=== PATIENT | male | born 1960 | race Caucasian/White ===

== ENCOUNTER → 2018-12-13 13:56 | Outpatient (CLI) | payer MEDICARE, SELFPAY ==
[2018-12-04 10:29] VITALS: BMI 28.2
--- NOTE | 2018-12-13 14:01 | EKG12_ITS ---
Test Reason : MED USE Blood Pressure : / mmHG Vent. Rate : 091 BPM Atrial Rate : 091 BPM P-R Int : 130 ms QRS Dur : 086 ms QT Int : 344 ms P-R-T Axes : 044 041 037 degrees QTc Int : 423 ms Sinus rhythm with frequent Premature ventricular complexes Possible Left atrial enlargement Borderline ECG Confirmed by JANAY KIMBROUGH, ARLYN ([id number]), book editor EHSAN BRAVO ([id number]) on 12/14/2018 8:13:42 AM Referred By: Antonio Michelle Confirmed By:ARLYN GUSTAFSON MD
== END ==
LOC: CVS 14:00
PROVIDERS: Family Provider Internal Medicine; PCP Internal Medicine; Referring Provider Internal Medicine; Visit Provider Internal Medicine
DX: I10 Essential (primary) hypertension (principal)
CPT/HCPCS: 93005

== ENCOUNTER → 2019-03-07 08:10 | Outpatient (CLI) | payer MEDICARE, SELFPAY ==
[2019-03-05 16:53] VITALS: BMI 28.2
[2019-03-07 12:21] LABS: Hematocrit 38.6 % (40-54); Hemoglobin 12.9 g/dl (13.0-16.5); Mean Corp Hgb Conc 33.4 g/gl (32-36); Mean Corpuscular Hgb 33.4 pg (27.0-32.0); Mean Platelet Vol. 12.4 fl (6.2-12.0); Platelet Count 141 K/mm3 (150-450); RBC Distribution Width CV 13.4 % (11.6-14.6); Red Blood Count 3.86 M/mm3 (4.6-6.2); White Blood Count 5.9 K/mm3 (4.4-11.0)
[2019-03-07 12:25] LABS: Scan Indicated on CBC? Y/N NO
[2019-03-07 12:35] LABS: Vitamin B12 503 pg/mL (211-911)
[2019-03-07 12:43] LABS: ALB/GLOB Ratio 1.1 RATIO (0.9-2.4); AST(SGOT) 19 U/L (15-37); Alanine Aminotransfer ALT/SGPT 23 U/L (16-61); Albumin, Serum 3.7 g/dL (3.2-5.0); Alkaline Phosphatase 68 U/L (45-117); Anion Gap 7 (5-15); BUN 8 mg/dL (7-18); BUN/Creat Ratio 8.1 RATIO (10-20); Calcium,Total 8.5 mg/dL (8.5-10.1); Chloride 109 mmol/L (98-107); Creatinine, Serum 0.98 mg/dL (0.70-1.30); EST Glomerular Filtration Rate 83 mL/min (>60); Est Glom Filt Rate - Afr Amer 100 mL/min (>60); Globulin 3.5 g/dL (2.2-4.2); Glucose 90 mg/dL (74-106); Potassium 3.9 mmol/L (3.5-5.1); Protein, Total 7.2 g/dL (6.4-8.2); Sodium Level 141 mmol/L (136-145); Thyroid Stim Hormone (TSH) 2.89 uIU/mL (0.358-3.74)
== END ==
PROVIDERS: Family Provider Internal Medicine; PCP Internal Medicine; Visit Provider Nurse Practitioner Family
DX: I10 Essential (primary) hypertension (principal); R53.83 Other fatigue; R43.2 Parageusia
CPT/HCPCS: 36415; 80053; 82607; 84443; 85027

== ENCOUNTER → 2019-03-27 10:04 | Outpatient (CLI) | payer MEDICARE, SELFPAY ==
[2019-03-20 13:34] VITALS: BMI 26.6
[2019-03-27 12:58] LABS: Erythrocyte Sedimentation Rate 16 mm/hr (0-20)
[2019-03-27 13:21] LABS: Amylase 141 U/L (25-115); Cholesterol 158 mg/dL (200); High Density Lipoprotein 49 mg/dL; Lipase 601 U/L (73-393); Triglycerides 117 mg/dL; Very Low Density Lipoprotein 23 mg/dL (5-40)
[2019-03-28 15:55] LABS: Folate, Hemolysate Test 341.9 ng/mL (Not Estab.); Folate, RBC (Hct) Test 40.9 % (37.5-51.0)
[2019-03-29 12:32] LABS: Folates, RBC Test 836 ng/mL (>498)
== END ==
PROVIDERS: Family Provider Internal Medicine; PCP Internal Medicine; Visit Provider Nurse Practitioner Family
DX: D53.9 Nutritional anemia, unspecified (principal); E78.5 Hyperlipidemia, unspecified; R11.2 Nausea with vomiting, unspecified; R63.4 Abnormal weight loss
CPT/HCPCS: 36415; 80061; 82150; 82747; 83690; 83921; 85014; 85652

== ENCOUNTER → 2019-04-03 09:53 | Outpatient (CLI) | payer MEDICARE, SELFPAY ==
[2019-03-05 16:53] VITALS: BMI 28.2
[2019-03-29 14:47] VITALS: BMI 26.6
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
== END ==
LOC: MRI 09:53
PROVIDERS: Family Provider Internal Medicine; PCP Internal Medicine; Referring Provider Nurse Practitioner Family; Visit Provider Nurse Practitioner Family
DX: M48.02 Spinal stenosis, cervical region (principal); M54.9 Dorsalgia, unspecified; G89.29 Other chronic pain
CPT/HCPCS: 72141

== ENCOUNTER 2019-04-09 08:32 | Day surgery (SDC) | payer MEDICARE, SELFPAY ==
--- NOTE | 2019-03-29 03:54 | HP_ITS ---
Intake Vital Signs 03/29/19 Height 5 ft 6 in 03/29/19 Weight: 165 lb 03/29/19 Body Mass Index (BMI) 26.6 03/29/19 Blood Pressure 158/92 H 03/29/19 Blood Pressure Location Rt brachial 03/29/19 Blood Pressure Position Sitting 03/29/19 Respiratory Rate 14 03/29/19 Pulse Rate 92 03/29/19 Pulse Source Monitor 03/29/19 Temperature 98.2 F 03/29/19 Temperature Source Oral 03/29/19 Pulse Ox 96 03/29/19 Oxygen Delivery Method room air 03/29/19 Body Mass Index (BMI) 26.6 Intake Visit Reasons: Nausea/Vomitting Abnormal Weight Loss Chief Complaint: 2 Week FU, [facility] reports [employer] Required: No Is patient in pain?: No Allergies tramadol Allergy (Severe, Verified 03/29/19 14:48) Itching Medications amlodipine 5 mg tablet 5 mg PO DAILY #90 tab 01/01/19 [Rx Confirmed 03/29/19] cyclobenzaprine 10 mg tablet 5 - 10 mg PO TID PRN #30 tab 03/05/19 [Rx Confirmed 03/29/19] meloxicam 7.5 mg tablet 7.5 mg PO DAILY #90 tab 03/05/19 [Rx Confirmed 03/29/19] omeprazole 20 mg capsule,delayed release 20 mg PO DAILY #90 cap 03/05/19 [Rx Confirmed 03/29/19] PFS Medical History Hypertension (Chronic) Arthritis (Acute) Hyperlipemia (Chronic) Chronic headaches (Chronic) Chronic back pain (Chronic) Cervical stenosis of spine (Acute) Surgical History History of appendectomy (Acute) History of carpal tunnel release of both wrists (Acute) History of cervical spinal surgery (Acute) History of lumbar surgery (Acute) History of vasectomy (Acute) Family History Mother Diabetes Arthritis Social History Smoking Status: Current every day smoker alcohol intake: current alcohol intake frequency: holidays/special occasions only substance use type: marijuana what type of physical activity do you participate in: walking frequency: daily HPI HPI HPI: SANTINO NICHOLAS, is a 59 M who presents to the office today for HPI HPI Surgical H&P: Yes HPI: SANTINO NICHOLAS, is a 59 M who presents to the office today for weight loss, GERD, nausea and vomiting. Patient reports that he has been having metallic taste in his mouth as well as nausea and vomiting. He is also saying that he has been on omeprazole. He has a history of surgery for cervical spine and the plate that is in his C-spine has broken. He reports a metallic taste in his throat. He also complains of swelling of his lymph nodes on the left side of his neck. He is also experienced a lot of unintentional weight loss lately. ROS General General: Yes weight change (loss, unintentional) and fatigue HEENT HEENT: Yes difficulty swallowing and swollen glands Musc Musculoskeletal: Yes back problems, arthritis, rheumatoid arthritis and gout Cardio Cardiovascular: Yes high blood pressure; no murmur, pacemaker, heart disease, atrial fibrillation, heart attack, heart stent, palpitations, shortness of breat with exertion or chest pain Psych Psychiatric: Yes depression; no anxiety Resp Respiratory: No shortness of breath, Yes sleep apnea, No cough, No COPD, No asthma, No emphysema, No wheezing Gastro Gastrointestinal: Yes abdominal pain, Yes nausea or vomiting, Yes diarrhea, No constipation, No blood in stool, No acid reflux, No hemorrhoids, No ulcers, No gallbladder problem, No black,tarry stools Jeb Hematologic: No blood thinners Exam Const General: cooperative Orientation: alert, oriented x3 Resp Effort & Inspection: normal respiratory effort Auscultation: clear to auscultation bilaterally Cardio Rate: regular rate Rhythm: regular rhythm Heart Sounds: no murmurs GI Inspection: non-distended Palpation: soft, nontender Assessment & Plan Problems 1. Abdominal pain with vomiting R10.9; R11.10 2. Weight loss, unintentional R63.4 Plan The patient has unintentional weight loss as well as vomiting and a metallic taste in his mouth. He also has swelling of his neck glands. I advised the patient a CT of his chest abdomen and pelvis to rule out malignancy due to weight loss and history of smoking. I will perform an EGD to check for malignancy as well. I will refer the patient to ENT for his swollen neck glands. Osvaldo Rodriguez MD Pager: [facility] [address] [place] [address], [address] [place] [address] Office: Orders Orders: EGD Today K21.9, R10.9, R11.10 Abdomen/Pelvis WITH Contrast Today R11.0, R63.4 Chest without Contrast Today R11.0, R63.4, Z72.0 Referrals: Ears, Nose and Throat M48.02, R59.0, R63.4 Coding Level of Care Code Off vis,new,level 3 Diagnoses Abdominal pain with vomiting R10.9; R11.10 Weight loss, unintentional R63.4 03/29/19 [id number] <Electronically signed by Osvaldo Rodriguez MD> Date Osvaldo Rodriguez MD I have re-examined the patient. There are no clinical changes since date of exam.
[2019-03-29 14:47] VITALS: BMI 26.6
[2019-04-09 09:02] VITALS: BP 147/81; PULSE 70; RESP 16; TEMP 36.6; O2SAT 98; BMI 26.9
[2019-04-09 11:58] VITALS: BP 114/70; BP 147/81; PULSE 67; RESP 18; TEMP 36.1; O2SAT 93
--- NOTE | 2019-04-09 11:58 | OP.ENDO_ITS ---
04/09/2019 Antonio Michelle MD [address] [place] [address] Re : Upper GI endoscopy procedure for Eliezer Rubio Dear Dr. Michelle This procedure was performed on Tuesday, April 09, 2019. My impressions and recommendations are as follows: Impressions : - Normal nasopharynx and oropharynx. - Normal esophagus. - Normal stomach. - Normal examined duodenum. - No specimens collected. Recommendations : - Discharge patient to home. - Resume previous diet. - Continue present medications. My findings are described in the full procedure note, which is enclosed. If I can be of further assistance, please feel free to contact me at Doctor phone number(s): , Work: . Sincerely, Osvaldo Rodriguez MD 04/09/2019 11:57:41 AM This report has been signed electronically.
[2019-04-09 12:03] VITALS: BP 116/74; BP 147/81; PULSE 68; RESP 16; O2SAT 96
[2019-04-09 12:08] VITALS: BP 114/82; BP 147/81; PULSE 68; RESP 16; O2SAT 96
[2019-04-09 12:13] VITALS: BP 112/75; BP 147/81; PULSE 61; RESP 16; TEMP 36.2; O2SAT 96
[2019-04-09 12:29] VITALS: BP 147/81
== END 2019-04-09 12:57 | disposition home or self-care (01) ==
LOC: EN 08:33 → AC 08:34
PROVIDERS: Family Provider Internal Medicine; PCP Internal Medicine; Referring Provider Internal Medicine; Visit Provider Surgery
PROC: 0DJ08ZZ Inspection of Upper Intestinal Tract, Via Natural or Artificial Opening Endoscopic (ICD-10-PCS; CPT 43235; principal; 2019-04-09 10:25)
DX: R10.13 Epigastric pain (principal); I10 Essential (primary) hypertension; E78.5 Hyperlipidemia, unspecified; K21.9 Gastro-esophageal reflux disease without esophagitis; F17.200 Nicotine dependence, unspecified, uncomplicated; F12.90 Cannabis use, unspecified, uncomplicated; R11.2 Nausea with vomiting, unspecified; R63.4 Abnormal weight loss; Z68.26 Body mass index [BMI] 26.0-26.9, adult; Z79.82 Long term (current) use of aspirin; Z79.899 Other long term (current) drug therapy
CPT/HCPCS: 43235; J7120; J2405

== ENCOUNTER → 2019-04-18 | Outpatient (CLI) | payer MEDICARE, SELFPAY ==
[2019-03-29 14:47] VITALS: BMI 26.6
[2019-04-10 14:18] VITALS: BMI 26.9
--- NOTE | 2019-04-18 14:21 | CT_ITS ---
HISTORY: Unexplained weight loss 4 months, history of nicotine dependence COMPARISON: None. TECHNIQUE: Helical CT axial images from the lung bases to the pubic symphysis with 100 ml of Isovue 300 intravenous contrast. Multiplanar reconstruction. Oral contrast was administered. A radiation dose optimization technique was used for this scan. # of images incl. paperwork: 476 FINDINGS: LUNG BASES: No basilar consolidation or effusions. LIVER: Normal in size and attenuation. Within segment 7, there is a 0.6 cm well-circumscribed hypodense lesion compatible with that of cyst. Within segment 6, there is a small bilobed appearing 0.5 cm hypodense nodule which cannot be further characterized. No suspicious hepatic lesions. HEPATOBILIARY: Normal-appearing gallbladder. No intra- or extrahepatic ductal dilatation. SPLEEN: Normal size. PANCREAS: Normal size and contour. No focal mass. ADRENAL GLANDS: Normal size. No adrenal masses. KIDNEYS: No obstructing calculi or hydronephrosis bilaterally. A 3 mm nonobstructing calculus right lower pole. No left nephrolithiasis. No focal solid renal mass. Bilateral renal cysts largest within the right lower pole measuring 3.2 cm. Normal bilateral ureters without calculi or hydroureter, normal opacification on delayed view imaging. BOWEL AND MESENTERY: Moderate wall thickening of the sigmoid colon most pronounced along its mid aspect. There are subjacent diverticula were no surrounding pericolonic fat stranding or edema. Remainder of the colon is otherwise within normal limits. No small or large bowel dilatation. The appendix is not visualized, no secondary signs of appendicitis. No abnormal mesenteric lymphadenopathy. No free fluid or pneumoperitoneum. RETROPERITONEUM:Normal caliber abdominal aorta without aneurysm. Mild ASVD. No abnormal retroperitoneal lymphadenopathy. PELVIS:Moderate diffuse urinary bladder wall thickening which is adequately distended.Borderline prostatomegaly. ABDOMINAL WALL: The abdominal wall is intact. BONES: No suspicious osseous lytic or blastic lesions seen. CT/Abdomen/Pelvis WITH Contrast IMPRESSION: 1. Moderate wall thickening of the urinary bladder despite adequate distention. Correlate clinically to determine whether further evaluation is warranted. 2. Moderate wall thickening of the sigmoid colon most pronounced along the mid portion. This may be sequela of prior bouts of diverticulitis; however neoplasm cannot be entirely excluded. Correlate clinically to determine whether further evaluation with colonoscopy is warranted. 3. Nonvisualized appendix. 4. Indeterminate but probably benign 0.6 cm hypodense hepatic lesion within segment 6. 5. Bilateral renal cysts. Right lower pole nonobstructing 3 mm calculus. Individualized dose optimization techniques were used for this CT. at 2100 Reported and signed by: Lionel Du MD Electronically Signed: Lionel Du MD at 20:59 EDT Tel , Service support ,
--- NOTE | 2019-04-18 14:21 | CT_ITS ---
HISTORY: Unexplained weight loss 4 months, history of nicotine dependence COMPARISON: CTA chest 01/20/2015 TECHNIQUE: Helical CT axial images of the thorax with 100 ml of Isovue 300 intravenous contrast. Multiplanar reconstruction. A radiation dose optimization technique was used for this scan. # of images incl. paperwork: 921 FINDINGS: LUNGS: The lung parenchyma is clear. Nonspecific benign-appearing 2 mm subpleural nodule anterior left upper lobe, series 6, image 50, unchanged dating back to December 2014. No pulmonary masses or suspicious nodules. MEDIASTINUM: Stable appearance of borderline enlarged precarinal lymph node and a couple of subcentimeter lymph nodes within the AP window, unchanged any back to December 2014. No abnormally enlarged mediastinal or hilar lymph nodes. PLEURA: No pleural effusion. No pneumothorax. CARDIAC: Normal heart size. No pericardial effusion. VASCULAR: Thoracic aorta is normal in caliber without aneurysm. The pulmonary vasculature demonstrates no significant dilatation. CHEST WALL: Chest wall is intact. No abnormal axillary lymphadenopathy. BONES: No suspicious osseous lytic or blastic lesions seen. Partially seen anterior cervical fusion hardware mild to moderate thoracic spine degenerative changes. UPPER ABDOMEN: The visualized upper abdomen demonstrates no acute abnormality. CT/Chest WITH Contrast IMPRESSION: 1. No evidence for malignancy or acute cardiopulmonary disease. 2. Stable appearance of borderline enlarged mediastinal lymph nodes and a nonspecific left upper lobe 2-3 mm subpleural nodule, unchanged since December 2014. Individualized dose optimization techniques were used for this CT. at 2049 Reported and signed by: Lionel Du MD Electronically Signed: Lionel Du MD at 20:48 EDT Tel , Service support ,
== END | disposition home or self-care (01) ==
PROVIDERS: Family Provider Internal Medicine; PCP Internal Medicine; Referring Provider Surgery; Visit Provider Surgery
DX: R63.4 Abnormal weight loss (principal); R11.0 Nausea; Z72.0 Tobacco use
CPT/HCPCS: 71260; 74177; Q9967

== ENCOUNTER → 2019-05-15 12:55 | Outpatient (CLI) | payer MEDICARE, SELFPAY ==
[2019-04-10 14:18] VITALS: BMI 26.9
[2019-05-06 14:17] VITALS: BMI 26.9
--- NOTE | 2019-05-15 13:00 | RAD_ITS ---
STUDY: SWALLOWING STUDY REASON FOR EXAM: Male, 59 years old. Dysphagia. Prior anterior cervical fusion. TECHNIQUE: The examination was performed with Speech Pathology in attendance. Under fluoroscopic observation, the patient ingested thin barium, thick barium, barium pudding, and barium coated cracker. FLUOROSCOPY TIME: 1:53 minutes/seconds. 1377 spot images were obtained. RADIOLOGIST INVOLVEMENT: Radiologist was present and providing direct supervision. COMPARISON: None. FINDINGS: The following was observed during swallowing of the various mixtures of barium: Thin Barium: Intermittent transient penetration with ingestion of thin liquids. Barium Pudding: There was no evidence of aspiration or laryngeal penetration. Barium Coated Cracker: There was no evidence of aspiration or laryngeal penetration. RAD/Swallowing Function w/Video IMPRESSION: Intermittent transient penetration with ingestion of thin liquids. The swallow study findings were discussed with the patient by the speech pathologist at the conclusion of the examination. Please see speech pathology report for more information and recommendations. Electronically Signed: Rock Barboza, at 14:01 EDT , Service support ,
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
== END ==
LOC: RAD 12:56
PROVIDERS: Family Provider Internal Medicine; PCP Internal Medicine; Referring Provider Otolaryngology; Visit Provider Otolaryngology
DX: R13.10 Dysphagia, unspecified (principal)
CPT/HCPCS: 74230; 92611

== ENCOUNTER → 2019-06-25 13:16 | Day surgery (SDC) | payer MEDICARE, SELFPAY ==
[2019-05-03 14:01] VITALS: BMI 26.9
--- NOTE | 2019-05-25 16:46 | HP_ITS ---
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 Is patient in pain?: No Allergies tramadol Allergy (Severe, Verified 05/03/19 14:00) Itching Medications amlodipine 5 mg tablet 5 mg PO DAILY #90 tab 01/01/19 [Rx Confirmed 04/10/19] Aspirin [Aspir 81] 81 mg PO DAILY 04/05/19 [History Confirmed 05/03/19] multivitamin tablet 1 tab PO DAILY 05/03/19 [History Confirmed 05/03/19] [facility] Medical History Hypertension (Chronic) Arthritis (Acute) Hyperlipemia (Chronic) Chronic headaches (Chronic) Chronic back pain (Chronic) Cervical stenosis of spine (Acute) Surgical History History of appendectomy (Acute) History of carpal tunnel release of both wrists (Acute) History of cervical spinal surgery (Acute) History of lumbar surgery (Acute) History of vasectomy (Acute) Family History Mother Diabetes Arthritis Social History (Updated 05/06/19 @ 07:56 by Osvaldo Rodriguez MD) Smoking Status: Light Smoker (<10/day) alcohol intake: current alcohol intake frequency: holidays/special occasions only substance use type: marijuana what type of physical activity do you participate in: walking frequency: daily HPI HPI HPI: SANTINO NICHOLAS, is a 59 M who presents to the office today for HPI HPI Surgical H&P: Yes HPI: SANTINO NICHOLAS, is a 59 M who presents to the office today for thickening of the colon. The patient had a recent CT scan for weight loss and was noted to have thickening of the sigmoid colon. Patient notes no left lower quadrant pain. ROS General General: Yes weight change (loss, unintentional) and fatigue HEENT HEENT: Yes difficulty swallowing and swollen glands Musc Musculoskeletal: Yes back problems, arthritis, rheumatoid arthritis and gout Cardio Cardiovascular: Yes high blood pressure; no murmur, pacemaker, heart disease, atrial fibrillation, heart attack, heart stent, palpitations, shortness of breat with exertion or chest pain Psych Psychiatric: Yes depression; no anxiety Resp Respiratory: No shortness of breath, Yes sleep apnea, No cough, No COPD, No asthma, No emphysema, No wheezing Gastro Gastrointestinal: Yes abdominal pain, Yes nausea or vomiting, Yes diarrhea, No constipation, No blood in stool, No acid reflux, No hemorrhoids, No ulcers, No gallbladder problem, No black,tarry stools Jeb Hematologic: No blood thinners Exam Const General: cooperative Orientation: alert, oriented x3 Resp Effort & Inspection: normal respiratory effort Auscultation: clear to auscultation bilaterally Cardio Rate: regular rate Rhythm: regular rhythm Heart Sounds: no murmurs GI Inspection: non-distended Palpation: soft, nontender Assessment & Plan Problems 1. Colonic thickening K63.9 Plan The patient is having weight loss and shows thickening of the sigmoid colon on CT scan. I do recommend colonoscopy to evaluate for malignancy. I explained endoscopy in detail to the patient. I explained the risks including but not limited to stroke or heart attack with anesthesia, perforation of the GI tract, bleeding, infection. I explained that any of these could necessitate further emergency surgery. The patient understands and all questions were answered sufficiently. The patient wishes to proceed with procedure. Osvaldo Rodriguez MD Pager: [facility] [address] [place] [address], [address] [place] [address] Office: Orders Orders: Colonoscopy Today K63.9 Coding Level of Care Code Off vis,est,level 3 Diagnoses Colonic thickening K63.9 05/06/19 0757 <Electronically signed by Osvaldo jones MD> Date _ Osvaldo Rodriguez MD
[2019-08-09 13:13] VITALS: BMI 27.9
== END ==
LOC: EN 08-28 13:16 → PAT 08-28 13:17
PROVIDERS: Family Provider Internal Medicine; PCP Internal Medicine; Referring Provider Internal Medicine; Visit Provider Surgery
DX: Z01.818 Encounter for other preprocedural examination (principal)

== ENCOUNTER 2019-09-20 08:01 | Day surgery (SDC) | payer MEDICARE, MEDICAID, SELFPAY ==
[2019-08-09 13:13] VITALS: BMI 27.9
[2019-09-20 08:41] VITALS: BP 109/77; PULSE 78; RESP 14; TEMP 36.7; O2SAT 98; BMI 25.4
[2019-09-20] MEDS: Lactated Ringers 1,000 ML 100 ML IV (08:59)
--- NOTE | 2019-09-20 09:30 | COLBX_PTH ---
PATIENT: SANTINO NICHOLAS LOC: EN U#:[id number] AGE/SX: 59/M ROOM: RE09/20/[address]: Dr. Osvaldo Rodriguez MD : 1960 BED: DIS: 09/20/2019 SPEC #: [id number] RECD: 09/20/19 12:51 STATUS: JOSÉ LUIS NII #: [id number] MERARY: 09/20/19 09:[address]: Osvaldo Rodriguez DEPT: SURGICAL PATHOLOGY RECD BY: Wily Humphrey ENTERED: 09/20/19 13:27 SP TYPE: COLON BX OTHR DR: Dr. Antonio Michelle MD Tissues: Transverse colon Procedures: Surgery Specimen Level IV HEADER OPERATION: Colonoscopy (MAC) PRE-OP DIAGNOSIS: Abnormal CT scan, thickening of sigmoid TISSUE SUBMITTED: Transverse colon polyp MICROSCOPIC DIAGNOSIS Transverse colon polyp, biopsy: Fragments of tubular adenoma. AM:eleazar 09/23/19 MICROSCOPIC DESCRIPTION Slides are reviewed. GROSS DESCRIPTION Received is one container labeled with the patient's name and not further designated. The specimen consists of a pink-red polyp measuring 1.3 x 1 x 0.5 cm. The apparent base is inked. The polyp is bisected. Also present in the container is a small piece of hook soft tissue measuring 0.3 x 0.3 x 0.1 cm. The entire specimen is submitted in one cassette. / SJ:eleazar 09/20/19 TC:5 CPT: 58866
--- NOTE | 2019-09-20 09:33 | PCM.HP.STD ---
Problem List (1) Colonic thickening Status: Acute History of Present Illness Date of Admission: 09/20/19 The patient is a 59 year old M the patient has CT scan done in March which showed thickening of the sigmoid colon. He saw me in April and colonoscopy was recommended. He is following up now for colonoscopy he denies any further weight loss or blood in his stool. He has no family history of colon cancer. Past Medical History Past Medical History (Chronic Problems): Chronic Problems (Last Reviewed 08/09/19 @ 13:13 by Ruthie Capellan) Dysphagia (Chronic) Contact dermatitis (Chronic) Hypertension (Chronic) Hypertension (Chronic) Hyperlipemia (Chronic) Chronic headaches (Chronic) Chronic back pain (Chronic) Cervical stenosis of spine (Chronic) Migraine (Chronic) Tobacco abuse (Chronic) Cervical disc disorder (Chronic) Medical History: Medical History (Last Reviewed 08/09/19 @ 13:13 by Ruthie Capellan) Hypertension (Chronic) I10 Arthritis (Acute) M19.90 Hyperlipemia (Chronic) E78.5 Chronic headaches (Chronic) R51 Chronic back pain (Chronic) M54.9, G89.29 Cervical stenosis of spine (Chronic) M48.02 Allergies tramadol Allergy (Severe, Verified 09/20/19 08:40) Itching Home Medications: Ambulatory Orders Medication Instructions Recorded multivitamin tablet 1 tab PO DAILY 05/03/19 meloxicam 7.5 mg tablet 7.5 mg PO DAILY PRN 05/06/19 aspirin 81 mg tablet,delayed 81 mg PO .qod tab 08/09/19 release Surgical History: Surgical History (Last Reviewed 08/09/19 @ 13:13 by Ruthie Capellan) History of appendectomy Z90.49 History of carpal tunnel release of both wrists Z98.890 History of cervical spinal surgery Z98.890 History of lumbar surgery Z98.890 History of vasectomy Z98.52 Surgical History: appendectomy, - - Hernia surgery neck surgery lumbar surgery Psychiatric History: No pertinent psych hx Smoking Status: Light Smoker (<10/day) Tobacco Use: Cigarettes Review of Systems Constitutional: Denies: Anorexia, Fever HEENT: Denies: Difficulty Hearing Respiratory: Denies: Cough Gastrointestinal: Denies: Abdominal Pain, Hematochezia, Nausea, Vomiting VTE Information - Inpt Only VTE Present on Admission: No VTE Mechan Device Prophylaxis: SCD's Patient Problems: Active and Suspected Problems (Last Reviewed 08/09/19 @ 13:13 by Ruthie Capellan) Colonic thickening (Acute) - Physical Exam Vitals/I&O's: Vital Signs Temp Pulse Resp BP Pulse Ox 98.0 F 78 14 109/77 98 09/20/19 08:41 09/20/19 08:41 09/20/19 08:41 09/20/19 08:41 09/20/19 08:41 Oxygen Delivery Method Room Air Weight: 162 lb 11.218 oz Body Mass Index (BMI) 25.4 General: Alert, Oriented x3 Lungs: Normal air movement Cardiovascular: Regular rate, Regular Rhythm Abdomen: Soft, Non Tender, Non-Distended Current Medications Lactated Ringer's () 1,000 mls @ 100 mls/hr IV .Q10H JESSICA Last Admin: 09/20/19 08:59 Dose: 100 mls/hr Documented by: Assessment/Plan All Active Problems (Last Reviewed 08/09/19 @ 13:13 by Ruthie Capellan) Colonic thickening (Acute) Upper respiratory infection (Acute) Arthritis (Acute) 59-year-old male with sigmoid colon thickening on CT scan I explained endoscopy in detail to the patient. I explained the risks including but not limited to stroke or heart attack with anesthesia, perforation of the GI tract, bleeding, infection. I explained that any of these could necessitate further emergency surgery. The patient understands and all questions were answered sufficiently. The patient wishes to proceed with procedure. Osvaldo Rodriguez MD Pager: [facility] [address] [place] [address], [address] [place] [address] Office:
[2019-09-20 10:10] VITALS: BP 109/77; BP 118/76; PULSE 65; RESP 16; TEMP 36; O2SAT 100
--- NOTE | 2019-09-20 10:10 | OP.COLON_ITS ---
Patient Name: Eliezer Rubio Procedure Date: 09/20/2019 9:38 AM Date of : 1960 Age: 59 Procedure: Colonoscopy Indications: Abnormal CT of the GI tract Providers: Osvaldo Rodriguez MD Referring MD: Antonio Michelle MD Medicines: Monitored Anesthesia Care Patient Profile: This is a 59 year old male. Refer to note in patient chart for documentation of history and physical. Last Colonoscopy: 3 years ago. Complications: No immediate complications. Estimated blood loss: Minimal. Procedure: Pre-Anesthesia Assessment: - Prior to the procedure, a History and Physical was performed, and patient medications and allergies were reviewed. The patient's tolerance of previous anesthesia was also reviewed. The risks and benefits of the procedure and the sedation options and risks were discussed with the patient. All questions were answered, and informed consent was obtained. Prior Anticoagulants: The patient has taken no previous anticoagulant or antiplatelet agents. ASA Grade Assessment: II - A patient with mild systemic disease. After reviewing the risks and benefits, the patient was deemed in satisfactory condition to undergo the procedure. After I obtained informed consent, the scope was passed under direct vision. Throughout the procedure, the patient's blood pressure, pulse, and oxygen saturations were monitored continuously. The colonoscope was introduced through the anus and advanced to the cecum, identified by appendiceal orifice and ileocecal valve. The colonoscopy was performed without difficulty. The patient tolerated the procedure well. The quality of the bowel preparation was good. Scope In: 9:46:55 AM Scope Withdrawal Time 0 hours 14 minutes 22 seconds Scope Out: 10:06:02 AM Total Procedure Duration Time 0 hours 19 minutes 7 seconds Findings: A medium polyp was found in the transverse colon. The polyp was sessile. The polyp was removed with a saline injection-lift technique using a hot snare. Resection and retrieval were complete. For location marking, one hemostatic clip was successfully placed. There was no bleeding at the end of the procedure. A polyp was found in the transverse colon. The polyp was flat. The polyp was removed with a cold biopsy forceps. Resection and retrieval were complete. Impression: - One medium polyp in the transverse colon, removed using injection-lift and a hot snare. Resected and retrieved. Clip was placed. - One polyp in the transverse colon, removed with a cold biopsy forceps. Resected and retrieved. Recommendation: - Await pathology results. - Repeat colonoscopy date to be determined after pending pathology results are reviewed for surveillance based on pathology results. - Discharge patient to home. - Resume previous diet. - Continue present medications. Procedure Code(s): --- Professional --- 42726, Colonoscopy, flexible; with removal of tumor(s), polyp(s), or other lesion(s) by snare technique 27527, Colonoscopy, flexible; with directed submucosal injection(s), any substance 30866, 59, Colonoscopy, flexible; with biopsy, single or multiple Diagnosis Code(s): --- Professional --- D12.3, Benign neoplasm of transverse colon (hepatic flexure or splenic flexure) R93.3, Abnormal findings on diagnostic imaging of other parts of digestive tract CPT copyright 2017 [employer]. All rights reserved. The codes documented in this report are preliminary and upon certified medical records coder review may be revised to meet current compliance requirements. Osvaldo Rodriguez MD 09/20/2019 10:10:20 AM This report has been signed electronically. Number of Addenda: 0 Note Initiated On: 09/20/2019 9:38 AM
[2019-09-20 10:15] VITALS: BP 109/77; BP 115/77; PULSE 65; RESP 16; O2SAT 99
[2019-09-20 10:20] VITALS: BP 109/77; BP 119/82; PULSE 70; RESP 16; O2SAT 100
[2019-09-20 10:25] VITALS: BP 109/77; BP 134/85; PULSE 60; RESP 16; TEMP 36; O2SAT 100
[2019-09-20 10:40] VITALS: BP 109/77
== END 2019-09-20 10:49 | disposition home or self-care (01) ==
LOC: EN 08:02 → AC 08:03
PROVIDERS: Family Provider Internal Medicine; PCP Internal Medicine; Referring Provider Internal Medicine; Visit Provider Surgery
PROC: 0DJD8ZZ Inspection of Lower Intestinal Tract, Via Natural or Artificial Opening Endoscopic (ICD-10-PCS; CPT 45378; principal; 2019-09-20 09:25)
DX: D12.3 Benign neoplasm of transverse colon (principal); R93.3 Abnormal findings on diagnostic imaging of other parts of digestive tract; I10 Essential (primary) hypertension; M19.90 Unspecified osteoarthritis, unspecified site; F17.210 Nicotine dependence, cigarettes, uncomplicated; Z79.82 Long term (current) use of aspirin
CPT/HCPCS: 45380; 45381; 45385; 88305; J7120

== ENCOUNTER 2021-03-29 11:11 | Emergency (ER) | payer MEDICARE, OTHER, SELFPAY ==
[2020-02-11 13:11] VITALS: BMI 25.4
[2021-03-29 11:12] VITALS: BP 123/79; PULSE 90; RESP 18; TEMP 36.3; O2SAT 98; BMI 26.6
--- NOTE | 2021-03-29 11:15 | ED.RN ---
PT ANGRY AND DEMANDING IN TRIAGE. PT THEN ON PHONE AND TEXTING. THIS RN CALMLY ASKS PT TO PUT PHONE DOWN SO THAT HE CAN BE TRIAGED. PT REMAINS ANGRY
--- NOTE | 2021-03-29 11:32 | CT_ITS ---
STUDY: CT ABDOMEN AND PELVIS WITH CONTRAST REASON FOR EXAM: Male, 61 years old. gi bleed RADIATION DOSAGE (If Supplied By Facility): CTDIvol = ( 10.67 ) mGy, DLP = ( 706.40 ) mGycm TECHNIQUE: Transaxial images were obtained from the dome of the diaphragm to the symphysis pubis without oral contrast. IV 100mL Isovue-370 was administered. Sagittal and coronal images were reconstructed. Individualized dose optimization techniques were used for this CT. COMPARISON: 04/18/2019 CT abdomen FINDINGS: The visualized lung bases are unremarkable. The visualized portions of the heart are within normal limits. Normal liver. Normal gallbladder and extrahepatic biliary system. Normal spleen. Normal pancreas. Normal bilateral adrenal glands. Posterior exophytic cyst with simple appearance of the right kidney is present measuring 3 cm in diameter. Smaller subcentimeter cortical cysts are present. No evidence of hydronephrosis. Left partially exophytic anterior cyst is present measuring 3.3 cm with smaller cortical cysts present. Mild bilateral perinephric stranding is present. Normal visualized stomach. Normal small intestine. Mild wall thickening of the sigmoid colon is present with underlying mild colitis not excluded. There is non-visualization of the appendix. There is diffuse atherosclerotic calcification of the abdominal aorta, without a demonstrated aneurysm. Normal inferior vena cava. Normal retroperitoneum. There is circumferential wall thickening of the bladder measuring 9 mm with moderate distention. Normal abdominal wall. Normal osseous structures. CT/Abdomen/Pelvis W IV Cont ONLY IMPRESSION: 1. Circumferential wall thickening of the bladder underlying cystitis not excluded, clinically correlate. There is a similar appearance compared to the previous CT exam. Mild bilateral perinephric stranding is present and similar compared to 04/18/2019. 2. Mild wall thickening of the sigmoid colon with underlying mild colitis not excluded. Electronically Signed: Aries Sabillon DO at 13:26 EDT , Service support ,
[2021-03-29 11:53] LABS: Absolute Neutrophil Count 6.3 X10^3/uL (2.0-7.7); Basophil# 0.04 X10^3/uL; Basophil% 0.4 % (0-1); Eosinophil# 0.08 X10^3/uL; Eosinophils% 0.9 % (0-5); Hematocrit 41.2 % (40-54); Lymphocyte % 20.2 % (19-41); Mean Corpuscular Hgb 33.6 pg (27.0-32.0); Mean Corpuscular Volume 98.8 fL (80-94); Mean Platelet Vol. 10.8 fl (6.2-12.0); Monocyte# 0.66 X10^3/uL; Monocyte% 7.4 % (0-10); NRBC Flagged by Analyzer 0 % (0-5); Neutrophil # 6.31 X10^3/uL (2.7-7.7); Neutrophil % 70.7 % (47-70); POSITIVE MORPHOLOGY YES; Platelet Count 195 K/mm3 (150-450); RBC Distribution Width CV 12.5 % (11.6-14.6); RBC Distribution Width SD 45.3 fl (35.1-43.9); Red Blood Count 4.17 M/mm3 (4.6-6.2); White Blood Count 8.9 K/mm3 (4.4-11.0)
[2021-03-29 11:55] LABS: Differential Indicated SCAN CRITERIA MET
[2021-03-29] MEDS: Morphine 4 MG/ML Syringe IV (11:59)
[2021-03-29] MEDS: Ondansetron 4 MG/2 ML Vial IV (11:59)
[2021-03-29 12:12] LABS: AST(SGOT) 30 U/L (15-37); Alanine Aminotransfer ALT/SGPT 22 U/L (16-61); Albumin, Serum 4.1 g/dL (3.2-5.0); Alkaline Phosphatase 78 U/L (45-117); Anion Gap 6 (5-15); BUN 15 mg/dL (7-18); BUN/Creat Ratio 13.3 RATIO (10-20); Calcium,Total 9.5 mg/dL (8.5-10.1); Chloride 106 mmol/L (98-107); Creatinine, Serum 1.13 mg/dL (0.70-1.30); EST Glomerular Filtration Rate 70 mL/min (>60); Est Glom Filt Rate - Afr Amer 85 mL/min (>60); Estimated Creatinine Clearance 61.95 ml/min; Globulin 4.1 g/dL (2.2-4.2); Glucose 95 mg/dL (74-106); Potassium 4.9 mmol/L (3.5-5.1); Protein, Total 8.2 g/dL (6.4-8.2); Sodium Level 139 mmol/L (136-145)
[2021-03-29 12:28] LABS: Lactic Acid 0.6 mmol/L (0.4-1.9)
[2021-03-29] MEDS: HYDROmorphone 0.5 MG/0.5 ML SYRINGE IV (13:08)
[2021-03-29 13:13] VITALS: BP 145/77; PULSE 73; RESP 18; O2SAT 99
--- NOTE | 2021-03-29 13:25 | EDS_ITS ---
HPI History of Present Illness Chief Complaint: Abd Pain Informant: patient Narrative Narrative: 61-year-old male presents with concern for abdominal pain. States that over the past 2 to 3 days he has had lower back pain from when he bent over to shredder picker an object. States this is chronic in nature but he exacerbated his back pain. States is made more difficult for him to move his bowels. States he was able to move his bowels after taking Colace however they were black in nature. Denies any chest pain, shortness of breath, vomiting, hematemesis, hematochezia, urinary symptoms. States his abdominal pain is achy and mainly in his right mid quadrant. [facility] Medical History (Updated 03/29/21 @ 14:[address] Stanley Sarah DO) Arthritis Cervical stenosis of spine Chronic back pain Chronic headaches Hyperlipemia Hypertension Home Medications multivitamin 1 tab PO DAILY 05/03/19 [History Last Taken 09/15/19] aspirin 81 mg tablet,delayed release 81 mg PO .qod tab 08/09/19 [History Last Taken 09/15/19] meloxicam 7.5 mg tablet 7.5 mg PO DAILY PRN #90 tab 02/11/20 [Rx Last Taken Unknown] ciprofloxacin HCl 500 mg PO BID #14 tablet 03/29/21 [Rx Last Taken Unknown] dicyclomine 20 mg PO .QID #20 tab 03/29/21 [Rx Last Taken Unknown] metronidazole [Flagyl] 500 mg PO BID #14 tab 03/29/21 [Rx Last Taken Unknown] pantoprazole [Protonix] 40 mg PO DAILY #30 tab 03/29/21 [Rx Last Taken Unknown] sucralfate [Carafate] 1 g PO Q6H #60 tab 03/29/21 [Rx Last Taken Unknown] Allergy/AdvReac Type Severity Reaction Status Date / Time tramadol Allergy Severe Itching Verified 03/29/21 11:14 Family History Mother Diabetes Arthritis Surgical History History of appendectomy History of carpal tunnel release of both wrists History of cervical spinal surgery History of lumbar surgery History of vasectomy Social History Smoking Status: Light Smoker (<10/day) alcohol intake: current alcohol intake frequency: holidays/special occasions only substance use type: marijuana what type of physical activity do you participate in: walking frequency: daily EXAM Physical Exam Const Vital Signs: 03/29/21 11:12 03/29/21 13:13 Temperature 97.4 F L Temperature Source Temporal Pulse Rate 90 73 Respiratory Rate 18 18 Blood Pressure 123/79 H 145/77 H Blood Pressure Mean 93 99 Pulse Ox 98 99 Oxygen Delivery Method Room Air Room Air MDM MDM MDM Narrative Medical decision making narrative: Patient appears well and nontoxic. Vital signs within normal limits. No rebound tenderness on exam. Lab work within normal limits including a normal hemoglobin. Lactic acid negative. Patient has stranding about his bladder as well as bilateral kidneys which is chronic in nature compared to other CTs. Patient also has an area of colitis. Patient was given narcotic pain medication as well as antiemetics and a fluid bolus. Feeling improved. Given the patient's dark stools he will be placed on Protonix. Will be given Cipro and Flagyl which should cover his urine as well as colitis. Will be given gastroenterology as well as urology for follow-up. Asked to return for new or worsening symptoms. Advised on refraining from alcohol, spicy foods, excessive caffeine. Patient agreeable and discharged home in stable condition. Lab Data Attestation: I reviewed the patient's lab results. Labs: Laboratory Results - last 24 hr 03/29/21 03/29/21 03/29/21 11:45 11:45 11:45 WBC 8.9 RBC 4.17 L Hgb 14.0 Hct 41.2 MCV 98.8 H MCH 33.6 H MCHC 34.0 RDW Std Deviation 45.3 H RDW Coeff of Rubén 12.5 Plt Count 195 MPV 10.8 Immature Gran % (Auto) 0.400 Neut % (Auto) 70.7 H Lymph % (Auto) 20.2 [place] % (Auto) 7.4 Eos % (Auto) 0.9 Baso % (Auto) 0.4 Absolute Neuts (auto) 6.3 Absolute Lymphs (auto) 1.80 Nucleated RBC % 0 Differential Comment Not Reportable Sodium 139 Potassium 4.9 Chloride 106 Carbon Dioxide 27.0 Anion Gap 6 BUN 15 Creatinine 1.13 Estim Creat Clear Calc 61.95 Est GFR (MDRD) Af Amer 85 Est GFR (MDRD) Non-Af 70 BUN/Creatinine Ratio 13.3 Glucose 95 Lactic Acid 0.6 Calcium 9.5 Total Bilirubin 0.60 AST 30 ALT 22 Alkaline Phosphatase 78 Total Protein 8.2 Albumin 4.1 Globulin 4.1 Albumin/Globulin Ratio 1.0 Urine Color Urine Clarity Urine pH Ur Specific [place] Urine Protein Urine Glucose (UA) Urine Ketones Urine Occult Blood Urine Nitrite Urine Bilirubin Urine Urobilinogen Ur Leukocyte Esterase Urine RBC Urine WBC Ur Squamous Epith Cells Urine Bacteria Urine Mucus 03/29/21 13:37 WBC RBC Hgb Hct MCV MCH MCHC RDW Std Deviation RDW Coeff of Rubén Plt Count MPV Immature Gran % (Auto) Neut % (Auto) Lymph % (Auto) [place] % (Auto) Eos % (Auto) Baso % (Auto) Absolute Neuts (auto) Absolute Lymphs (auto) Nucleated RBC % Differential Comment Sodium Potassium Chloride Carbon Dioxide Anion Gap BUN Creatinine Estim Creat Clear Calc Est GFR (MDRD) Af Amer Est GFR (MDRD) Non-Af BUN/Creatinine Ratio Glucose Lactic Acid Calcium Total Bilirubin AST ALT Alkaline Phosphatase Total Protein Albumin Globulin Albumin/Globulin Ratio Urine Color Yellow Urine Clarity Clear Urine pH 6.5 Ur Specific [place] 1.010 Urine Protein 15 H Urine Glucose (UA) Normal Urine Ketones Negative Urine Occult Blood 150 H Urine Nitrite Negative Urine Bilirubin Negative Urine Urobilinogen Normal Ur Leukocyte Esterase 25 H Urine RBC 0-5 SEEN Urine WBC 0 SEEN Ur Squamous Epith Cells 0 SEEN Urine Bacteria 0 SEEN Urine Mucus 0 SEEN Radiography Diagnostic Testing: Radiology Impression Abdomen/Pelvis CT 03/29/21 11:32 IMPRESSION: 1. Circumferential wall thickening of the bladder underlying cystitis not excluded, clinically correlate. There is a similar appearance compared to the previous CT exam. Mild bilateral perinephric stranding is present and similar compared to 04/18/2019. 2. Mild wall thickening of the sigmoid colon with underlying mild colitis not excluded. Electronically Signed: Aries Sabillon DO at 13:26 EDT , Service support , Discharge Plan Triage Chief Complaint: Abd Pain ED Provider: Stanley Sarah Dx/Rx/DC Orders Clinical Impression: Dark stools, Chronic back pain, Colitis, Cystitis Instructions: ED Upper GI Bleeding (Stable) Prescriptions: New pantoprazole [Protonix] 40 mg tablet,delayed release (DR/EC) 40 mg PO DAILY Qty: 30 RF: 0 sucralfate [Carafate] 1 gram tablet 1 g PO Q6H Qty: 60 RF: 0 metronidazole [Flagyl] 500 mg tablet 500 mg PO BID Qty: 14 RF: 0 dicyclomine 20 mg tablet 20 mg PO .QID Qty: 20 RF: 0 ciprofloxacin HCl 500 mg tablet 500 mg PO BID Qty: 14 RF: 0 No Action multivitamin Tablet 1 tab PO DAILY RF: 0 meloxicam 7.5 mg tablet 7.5 mg PO DAILY PRN (Reason: Neck Pain) Qty: 90 RF: 2 aspirin 81 mg tablet,delayed release (DR/EC) 81 mg PO .qod RF: 0 Primary Care Provider: Antonio Michelle Referrals: Antonio Michelle MD [Primary Care Provider] - 2 Days Tito Miller MD [STAFF PHYSICIAN] - 5-7 Days Gordon Foster MD [NON-STAFF] - 5-7 Days Disposition Disposition: Home, self care Discharge Date/Time: 03/29/21 14:32
[2021-03-29 13:48] LABS: Bacteria 0 SEEN /hpf (None Seen); Color, Urine Yellow (Yellow); Glucose, Dipstick Normal (Normal); Ketone-Dipstick Negative (Negative); Leukocyte Esterase-Dipstick 25 /ul (Negative); Mucous, Urine 0 SEEN /hpf (<or=2+); Nitrite-Dipstick Negative (Negative); Occult Blood-Urine 150 /ul (Negative); Protein-Dipstick 15 mg/dl (Negative); Squamous Epithelial Cells - UA 0 SEEN /hpf (0-5); Urine Bilirubin Dipstick Negative (Negative); Urine Clarity Clear (Clear); Urine Urobilinogen Normal (Normal); Urine pH 6.5 (5.0 - 8.0); White Blood Cells 0 SEEN /hpf (0-5)
[2021-03-29 13:54] LABS: Red Blood Cells-Urine 0-5 SEEN /hpf (0-5)
== END 2021-03-29 14:32 | disposition home or self-care (01) ==
PROVIDERS: Emergency Provider Emergency Medicine; PCP Internal Medicine
DX: K52.9 Noninfective gastroenteritis and colitis, unspecified (principal); N30.90 Cystitis, unspecified without hematuria; M48.02 Spinal stenosis, cervical region; G89.29 Other chronic pain; I10 Essential (primary) hypertension; E78.5 Hyperlipidemia, unspecified; M19.90 Unspecified osteoarthritis, unspecified site; F17.200 Nicotine dependence, unspecified, uncomplicated; Z79.82 Long term (current) use of aspirin; Z79.899 Other long term (current) drug therapy
CPT/HCPCS: 74177; 80053; 81001; 83605; 85025; 96361; 96365; 96375; 99285; J7030; Q9967; A4216; J2405

== ENCOUNTER 2021-04-02 18:39 | Emergency (ER) | payer OTHER, MEDICARE, SELFPAY ==
[2021-04-02 18:40] VITALS: BP 131/75; PULSE 98; RESP 16; TEMP 36.4; O2SAT 96; BMI 25.8
[2021-04-02 19:59] LABS: Bacteria 0 SEEN /hpf (None Seen); Color, Urine Yellow (Yellow); Glucose, Dipstick Normal (Normal); Ketone-Dipstick 5 mg/dl (Negative); Leukocyte Esterase-Dipstick 100 /ul (Negative); Nitrite-Dipstick Negative (Negative); Occult Blood-Urine 250 /ul (Negative); Protein-Dipstick 30 mg/dl (Negative); Squamous Epithelial Cells - UA 0 SEEN /hpf (0-5); Urine Bilirubin Dipstick Negative (Negative); Urine Clarity Clear (Clear); Urine Urobilinogen Normal (Normal)
[2021-04-02 20:01] LABS: Absolute Lymphocyte Count 1.49 X10^3/uL (0.83-4.51); Absolute Neutrophil Count 4.8 X10^3/uL (2.0-7.7); Basophil# 0.04 X10^3/uL; Basophil% 0.6 % (0-1); Eosinophil# 0.08 X10^3/uL; Eosinophils% 1.1 % (0-5); Hematocrit 36.3 % (40-54); Hemoglobin 12.3 g/dL (13.0-16.5); Lymphocyte # 1.49 X10^3/ul (0.83-4.51); Lymphocyte % 20.9 % (19-41); Mean Corp Hgb Conc 33.9 g/dL (32-36); Mean Corpuscular Hgb 33.2 pg (27.0-32.0); Mean Corpuscular Volume 97.8 fL (80-94); Mean Platelet Vol. 10.9 fl (6.2-12.0); Monocyte# 0.65 X10^3/uL; Monocyte% 9.1 % (0-10); NRBC Flagged by Analyzer 0 % (0-5); Neutrophil # 4.84 X10^3/uL (2.7-7.7); Platelet Count 206 K/mm3 (150-450); RBC Distribution Width CV 12.4 % (11.6-14.6); RBC Distribution Width SD 45.3 fl (35.1-43.9); Red Blood Count 3.71 M/mm3 (4.6-6.2); White Blood Count 7.1 K/mm3 (4.4-11.0)
[2021-04-02 20:05] LABS: Mucous, Urine 1+ /hpf (<or=2+); Red Blood Cells-Urine 0-5 SEEN /hpf (0-5); White Blood Cells 0-5 SEEN /hpf (0-5)
[2021-04-02 20:06] LABS: Calcium Oxalate Crystals Ur 1+ /hpf (<or=2+); Hyaline Cast 0-5 SEEN /lpf (0-5)
--- NOTE | 2021-04-02 20:08 | EDS_ITS ---
HPI History of Present Illness Chief Complaint: GI Bleed Informant: patient Onset/Context/Timing Onset: Days Context: Gradual Onset Timing: - (Not applicable) Quality: Dark possibly black stool and cloudy urine Location: Rectum and Current Severity: Not applicable Maximum Severity: Not applicable Worsened by: Patient has not taken Kaopectate or Pepto-Bismol. He does report intermitt Relieved by: Nothing Associated Symptoms Associated Symptoms: No constitutional symptoms Narrative Narrative: Patient is a 61-year-old male who is a poor informant. He presents because of dark stool concern for GI bleed. He has an appointment to see his doctor later this month. He was told he has stable GI bleed. He denies vomiting. He denies hematemesis. He denies maroon-colored stool or blood in the stool. Denies mucus in the stool. He denies fever, chills night sweats. He denies weight gain or weight loss. He does report cloudy urine and may be discomfort. Denies blood in his urine. Denies pan-colored urine. He denies history of liver disease. Prior similar symptoms: Yes Recent Illness/Hospitalization: Yes [facility] Medical History (Updated 04/02/21 @ 20:[address] Jamie Hawkins MD) Arthritis Cervical stenosis of spine Chronic back pain Chronic headaches Hyperlipemia Hypertension Home Medications multivitamin 1 tab PO DAILY 05/03/19 [History Last Taken 09/15/19] aspirin 81 mg tablet,delayed release 81 mg PO .qod tab 08/09/19 [History Last Taken 09/15/19] meloxicam 7.5 mg tablet 7.5 mg PO DAILY PRN #90 tab 02/11/20 [Rx Last Taken Unknown] ciprofloxacin HCl 500 mg PO BID #14 tablet 03/29/21 [Rx Last Taken Unknown] dicyclomine 20 mg PO .QID #20 tab 03/29/21 [Rx Last Taken Unknown] metronidazole [Flagyl] 500 mg PO BID #14 tab 03/29/21 [Rx Last Taken Unknown] pantoprazole [Protonix] 40 mg PO DAILY #30 tab 03/29/21 [Rx Last Taken Unknown] sucralfate [Carafate] 1 g PO Q6H #60 tab 03/29/21 [Rx Last Taken Unknown] Allergy/AdvReac Type Severity Reaction Status Date / Time tramadol Allergy Severe Itching Verified 03/29/21 11:14 Family History Mother Diabetes Arthritis Surgical History History of appendectomy History of carpal tunnel release of both wrists History of cervical spinal surgery History of lumbar surgery History of vasectomy Social History Smoking Status: Light Smoker (<10/day) alcohol intake: current alcohol intake frequency: holidays/special occasions only substance use type: marijuana what type of physical activity do you participate in: walking frequency: daily ROS ROS ED Constitutional Constitutional ED: Denies chills, fever(s), subjective, sweats or weight loss Eyes Eyes: Denies blurry vision, change in vision or diplopia ENT ENT ED: Denies ear pain, rhinorrhea or sore throat Cardiovascular Cardiovascular: Denies chest pain, orthopnea or palpitations Respiratory/Chest Respiratory/Chest: Denies cough, dyspnea, dyspnea on exertion or orthopnea Gastrointestinal Gastrointestinal: Denies abdominal pain, constipation, diarrhea, nausea or vomiting Genitourinary Genitourinary ED: Denies dysuria, hematuria or urinary frequency Musculoskeletal Musculoskeletal: Denies arthralgias, back pain or myalgias Integumentary Denies rash Neurologic Neurologic: Denies headache(s) or weakness EXAM Physical Exam Const Vital Signs: 04/02/21 18:40 Temperature 97.6 F L Temperature Source Temporal Pulse Rate 98 Respiratory Rate 16 Blood Pressure 131/75 H Blood Pressure Mean 93 Pulse Ox 96 Oxygen Delivery Method Room Air Positive well nourished and well developed General Appearance ED: well developed and NAD HEENT Reports moist mucous membranes HEENT Narrative: Normocephalic and atraumatic. No asymmetry. Nares patent. Ears are normal. Posterior pharynx is normal. Eyes PERRL and EOMs intact bilaterally General Eye ED: Negative for pale conjunctiva or scleral icterus Neck no lymphadenopathy, supple and no JVD General: Negative for tenderness Chest Wall inspection of chest normal Resp normal respiratory effort Cardio regular rate, regular rhythm, S1 normal heart sound, S2 normal heart sound and no murmurs GI normal to inspection, nondistended, normoactive bowel sounds and non-tender Palpation: soft Rectal Exam: normal sphincter tone, prostate normal and heme negative stool Back/Spine no CVA tenderness Cervical Spine: Negative for cervical spine tenderness Thoracic Spine / Upper Back: Negative for thoracic spinal tenderness or para spinal muscle tenderness Extremity normal to inspection General Extremety ED: Negative for edema or tenderness General Extremity: Negative for edema Neuro oriented x3, CN's II-XII intact bilaterally and no sensory deficits noted Sensorium / Orientation: alert Motor Exam: strength 5/5 throughout Psych mental status grossly normal Skin no rashes or lesions noted and no wounds MDM MDM MDM Narrative Medical decision making narrative: Stool for occult blood was ordered since his stool is normal in appearance. Because he reports cloudy urine a UA was obtained. CBC was obtained assess H&H and white count. Lab Data Attestation: I reviewed the patient's lab results. Lab results narrative: Stool for occult blood negative. Patient's H&H varies between 12 and 14. Urinalysis is unremarkable. Labs: Laboratory Results - last 24 hr 04/02/21 04/02/21 19:15 19:40 WBC 7.1 RBC 3.71 L Hgb 12.3 L Hct 36.3 L MCV 97.8 H MCH 33.2 H MCHC 33.9 RDW Std Deviation 45.3 H RDW Coeff of Rubén 12.4 Plt Count 206 MPV 10.9 Immature Gran % (Auto) 0.300 Neut % (Auto) 68.0 Lymph % (Auto) 20.9 Sac % (Auto) 9.1 Eos % (Auto) 1.1 Baso % (Auto) 0.6 Absolute Neuts (auto) 4.8 Absolute Lymphs (auto) 1.49 Nucleated RBC % 0 Urine Color Yellow Urine Clarity Clear Urine pH 6.0 Ur Specific [place] 1.020 Urine Protein 30 H Urine Glucose (UA) Normal Urine Ketones 5 H Urine Occult Blood 250 H Urine Nitrite Negative Urine Bilirubin Negative Urine Urobilinogen Normal Ur Leukocyte Esterase 100 H Urine RBC 0-5 SEEN Urine WBC 0-5 SEEN Ur Squamous Epith Cells 0 SEEN Calcium Oxalate Crystal 1+ Urine Bacteria 0 SEEN Hyaline Casts 0-5 SEEN Urine Mucus 1+ Treatment and Re-Evaluation Comments:: Since work-up is negative he will be discharged to home. Discharge Plan Triage Chief Complaint: GI Bleed ED Provider: Jamie Hawkins Dx/Rx/DC Orders Clinical Impression: Dark stools Instructions: ED Medical Screening Exam, Nonemergent Prescriptions: No Action multivitamin Tablet 1 tab PO DAILY RF: 0 meloxicam 7.5 mg tablet 7.5 mg PO DAILY PRN (Reason: Neck Pain) Qty: 90 RF: 2 aspirin 81 mg tablet,delayed release (DR/EC) 81 mg PO .qod RF: 0 pantoprazole [Protonix] 40 mg tablet,delayed release (DR/EC) 40 mg PO DAILY Qty: 30 RF: 0 sucralfate [Carafate] 1 gram tablet 1 g PO Q6H Qty: 60 RF: 0 metronidazole [Flagyl] 500 mg tablet 500 mg PO BID Qty: 14 RF: 0 dicyclomine 20 mg tablet 20 mg PO .QID Qty: 20 RF: 0 ciprofloxacin HCl 500 mg tablet 500 mg PO BID Qty: 14 RF: 0 Primary Care Provider: Antonio Michelle Referrals: Antonio Michelle MD [Primary Care Provider] - As Needed Disposition Disposition: Home, self care
[2021-04-02 20:12] LABS: Anion Gap 4 (5-15); BUN 18 mg/dL (7-18); BUN/Creat Ratio 14.1 RATIO (10-20); Calcium,Total 8.5 mg/dL (8.5-10.1); Chloride 106 mmol/L (98-107); Creatinine, Serum 1.28 mg/dL (0.70-1.30); EST Glomerular Filtration Rate 61 mL/min (>60); Est Glom Filt Rate - Afr Amer 73 mL/min (>60); Estimated Creatinine Clearance 56.66 ml/min; Glucose 95 mg/dL (74-106); Potassium 4.7 mmol/L (3.5-5.1); Sodium Level 138 mmol/L (136-145)
== END 2021-04-02 20:21 | disposition home or self-care (01) ==
PROVIDERS: Emergency Provider Emergency Medicine; PCP Internal Medicine
DX: K92.1 Melena (principal); F17.200 Nicotine dependence, unspecified, uncomplicated; Z79.82 Long term (current) use of aspirin; Z79.899 Other long term (current) drug therapy
CPT/HCPCS: 80048; 81001; 82274; 85025; 99283; A4216

== ENCOUNTER → 2021-05-27 10:06 | Outpatient (CLI) | payer MEDICARE, MEDICAID, SELFPAY ==
--- NOTE | 2021-05-27 10:19 | EKG12_ITS ---
Test Reason : PRE OP Blood Pressure : / mmHG Vent. Rate : 080 BPM Atrial Rate : 080 BPM P-R Int : 144 ms QRS Dur : 088 ms QT Int : 360 ms P-R-T Axes : 061 064 056 degrees QTc Int : 415 ms Normal sinus rhythm Normal ECG Confirmed by MARCELL KIMBROUGH, BALBIR ([id number]), clinical editor ZACKERY ELLIS ([id number]) on 05/31/2021 8:59:30 AM Referred By: Tito Miller Confirmed By:MADELINE FAITH MD
[2021-05-27 10:38] LABS: Hematocrit 41.1 % (40-54); Hemoglobin 13.9 g/dL (13.0-16.5); Mean Corp Hgb Conc 33.8 g/dL (32-36); Mean Corpuscular Hgb 33.7 pg (27.0-32.0); Mean Corpuscular Volume 99.5 fL (80-94); Mean Platelet Vol. 10.8 fl (6.2-12.0); Platelet Count 178 K/mm3 (150-450); RBC Distribution Width CV 12.5 % (11.6-14.6); Red Blood Count 4.13 M/mm3 (4.6-6.2); White Blood Count 6.1 K/mm3 (4.4-11.0)
[2021-05-27 11:02] LABS: Anion Gap 5 (5-15); BUN 13 mg/dL (7-18); BUN/Creat Ratio 13.1 RATIO (10-20); Chloride 106 mmol/L (98-107); Creatinine, Serum 0.99 mg/dL (0.70-1.30); EST Glomerular Filtration Rate 81 mL/min (>60); Est Glom Filt Rate - Afr Amer 99 mL/min (>60); Glucose 109 mg/dL (74-106); Sodium Level 138 mmol/L (136-145)
== END ==
PROVIDERS: PCP Internal Medicine; Referring Provider Urology; Visit Provider Urology
DX: Z01.812 Encounter for preprocedural laboratory examination (principal); Z03.818 Encounter for observation for suspected exposure to other biological agents ruled out
CPT/HCPCS: 36415; 80048; 85027; 87635; 93005; C9803; U0005; U0003

== ENCOUNTER 2024-03-15 20:33 | Emergency (ER) | payer OTHER, SELFPAY ==
[2024-03-15] VITALS (9 sets, daily range): BP systolic 145–173; BP diastolic 75–99; PULSE 72–100; RESP 18–20; TEMP 36.4–36.6; O2SAT 94–98; BMI 25.9
--- NOTE | 2024-03-15 20:55 | ED.RN ---
pt c/o n/t to left face. reduced left peripherial vision. dizziness and headache
--- NOTE | 2024-03-15 20:57 | ED.RN ---
Stroke alert called in triage. Pt out of 24 hr window, stroke alert cancelled per Dr. Nava.
--- NOTE | 2024-03-15 21:04 | CT_ITS ---
INDICATION: Neuro deficit, acute, stroke suspected EXAMINATION: CT BRAIN - CT Head Stroke Protocol W/O Contrast Injection TECHNIQUE: Serial CT axial images were obtained of the head without intravenous contrast. A radiation dose optimization technique was used for this scan. COMPARISON: None. Findings: Serial CT axial images of the head without contrast. BRAIN PARENCHYMA: Diffuse periventricular hypoattenuation likely chronic white matter ischemic changes. Mild diffuse volume loss. No evidence of intraparenchymal hemorrhage or hyperattenuating extra-axial fluid collection. VASCULAR STRUCTURES: Atherosclerotic vascular calcifications. BONES: Paranasal sinuses are clear. SCALP/REMAINING SOFT TISSUES: Unremarkable. ASPECTS Score for Acute Strokes, if applicable: 10 CT/STROKE Brain/Head without Cont IMPRESSION: Age-related changes as above, without evidence of acute intracranial hemorrhage in this noncontrast head CT. Stroke protocol head CT results discussed with Dr. Darren Nava at 2122 hours eastern time 03/15/2024. N.B. : The above Results were Read Back by Osvaldo Reid MD to Darren Nava MD, and understanding confirmed on 03/15/2024 21:24:57 (ET). Electronically Signed: Osvaldo Reid MD at 21:26 EDT ,
--- NOTE | 2024-03-15 21:04 | EKG12_ITS ---
Test Reason : NEURO SX Blood Pressure : / mmHG Vent. Rate : 064 BPM Atrial Rate : 064 BPM P-R Int : 156 ms QRS Dur : 090 ms QT Int : 388 ms P-R-T Axes : 046 056 040 degrees QTc Int : 400 ms Normal sinus rhythm Normal ECG Confirmed by Lionel De La Paz ([id number]), continuity editor SARINA LIZARRAGA ([id number]) on 03/18/2024 8:56:34 AM Referred By: Confirmed By:Lionel De La Paz
--- NOTE | 2024-03-15 21:05 | EDS_ITS ---
HPI History of Present Illness Chief Complaint: Neuro S/Sx Informant: patient Narrative Narrative: Patient presents on his own for symptoms that started at 1400 today, he is seen around 2100. He states yesterday at 2 PM, he was swinging an ax and cutting wood. However today at 2 PM, states he was resting when all of a sudden he had a severe headache on the left side of his head in the temporal area, and simultaneously started having weakness and numbness in his left arm, he was very off balance and had disequilibrium, at 1 point before this he thinks he maybe had some tinnitus but that is gone, and problems with his vision that felt like it was in his left eye. He has never had this before. He takes no anticoagulants, he takes baby aspirin but no other antiplatelets. He denies any trauma lately or hospitalization/infection. He has a history of a plate in his cervical spine, he has been having chronic issues with it, he states he was told based on CT imaging that the plate broke, screws are coming out, and it is affecting his swallowing so he had a esophagram and has to be careful not to aspirate because he is at risk for that. None of the stuff is new, but he was describing swinging an ax and cutting wood yesterday and states he probably should not have done that because he is concerned that the plate in his neck may be causing all of the symptoms that started today at 2 PM. During this he checked his blood pressure at home and it was somewhere in the 180s/100s. He states that is unusual for him. [facility] Medical History (Updated 03/15/24 @ 23:[address] Pipo Mahmood, DO) Hypertension Arthritis Hyperlipemia Chronic headaches Chronic back pain Cervical stenosis of spine Home Medications ?Medication ?Instructions ?Recorded ?Last Taken ?Type multivitamin 1 tab PO DAILY 05/03/19 09/15/19 History aspirin 81 mg tablet,delayed 81 mg PO .qod 08/09/19 09/15/19 History release meloxicam 7.5 mg tablet 7.5 mg PO DAILY PRN Neck Pain #90 02/11/20 Unknown Rx tabs dicyclomine 20 mg tablet 20 mg PO .QID #20 tabs 03/29/21 Unknown Rx pantoprazole 40 mg tablet,delayed 40 mg PO DAILY #30 tabs 03/29/21 Unknown Rx release (Protonix) sucralfate 1 gram tablet (Carafate) 1 g PO Q6H #60 tabs 03/29/21 Unknown Rx Allergy/AdvReac Type Severity Reaction Status Date / Time tramadol Allergy Severe Itching Verified 03/15/24 20:38 Family History Mother Diabetes Arthritis Surgical History History of vasectomy History of appendectomy History of carpal tunnel release of both wrists History of lumbar surgery History of cervical spinal surgery Social History Smoking Status: Light Smoker (<10/day) alcohol intake: current alcohol intake frequency: holidays/special occasions only substance use type: marijuana what type of physical activity do you participate in: walking frequency: daily EXAM Physical Exam Const Vital Signs: 03/15/24 20:34 03/15/24 20:57 03/15/24 21:15 Temperature 97.6 F L Temperature Source Temporal Pulse Rate 100 83 Respiratory Rate 18 20 H Blood Pressure 173/88 H 163/99 H Blood Pressure Mean 116 120 Pulse Ox 94 97 Oxygen Delivery Method Room Air Room Air Room Air 03/15/24 21:22 03/15/24 21:34 03/15/24 21:49 Temperature Temperature Source Pulse Rate 72 Respiratory Rate 18 Blood Pressure 149/79 H 146/87 H Blood Pressure Mean 102 106 Pulse Ox 98 95 Oxygen Delivery Method Room Air 03/15/24 22:00 03/15/24 22:15 03/15/24 22:30 Temperature Temperature Source Pulse Rate 86 79 Respiratory Rate 18 18 Blood Pressure 158/84 H 145/75 H 147/96 H Blood Pressure Mean 107 98 113 Pulse Ox 95 97 Oxygen Delivery Method Room Air 03/15/24 22:42 Temperature 97.9 F Temperature Source Pulse Rate 79 Respiratory Rate 18 Blood Pressure 147/96 H Blood Pressure Mean 113 Pulse Ox 97 Oxygen Delivery Method NIHSS NIHSS Initial: 1a Level of Consciousness: 0 1b LOC Questions (Score 2 if aphasic/stupor): 0 1c LOC Commands (Only score 1st attempt): 0 2 Best Gaze (If aphasic, use reflexive mvmts.): 0 3 Visual: 1 4 Facial Palsy: 0 5 Motor Arm Right (UN = amputation/fusion): 0 5 Motor Arm Left: 0 6 Motor Leg Right: 0 6 Motor Leg Left: 0 7 Limb ataxia (Only + if out of proportion): 1 8 Sensory (Aphasia/stupor=0 or 1, coma=2): 1 9 Best Language: 0 10 Dysarthria (mute, coma=2, intubated=UN): 0 11 Extinction and Inattention (only scored if +): 0 Total Score: 3 MDM MDM MDM Narrative Medical decision making narrative: When he presented to triage, nursing called a triage stroke team citing that his last known well was yesterday at 2 PM, which was 31 hours ago. Therefore due to ER volume, I saw the patient in triage and upon seeing this canceled the stroke team and had the patient go to her room which was done quickly, but I was already seeing other patients which I continued to do. Upon seeing this patient several minutes later, it is evident that he was last known well at 2 PM today which was 7 hours ago, so I called stroke team during my evaluation. NIHSS is 3, see above. Due to timing, he is not a thrombolytic candidate, but he was sent for CT/CTA. I reviewed the CT images, I agree with the result it is negative for bleed. Discussed with the radiologist. With regards to the CTA, I also reviewed those images and the result which I agree with, it is negative for LVO or anything else acute. Discussed with the radiologist again. Given this he is not a candidate for thrombolytics nor does he need an emergent perfusion scan to evaluate for thrombectomy. Therefore will discuss with hospitalist for admi ssion here for further stroke workup. Prior to admission, patient discussed with me and hospitalist that he refused to stay in the hospital. I had a long discussion with the patient. Advised him th at if he wants to leave AGAINST MEDICAL ADVICE she needs understand the risks, which is basically permanent disability and from worsening stroke says he understands all that, states he does not have good reasons but he does have reasons and does not want to stay. We talked about the [facility], I offered to transfer him, he declines and states he is going to go home. I advised him to take aspirin 325 daily, turns out his medication list includes aspirin 81 mg but he has not taken it in over a year. He is also advised to take high-dose statin, but he left before we could offer him any prescriptions, but he did sign out AGAINST MEDICAL ADVICE. Lab Data Attestation: I reviewed the patient's lab results. Labs: Laboratory Results - last 24 hr 03/15/24 03/15/24 21:06 21:10 WBC 8.9 RBC 3.69 L Hgb 12.3 L Hct 37.0 L MCV 100.3 H MCH 33.3 H MCHC 33.2 RDW Std Deviation 49.0 H RDW Coeff of Rubén 13.2 Plt Count 167 MPV 10.4 Immature Gran % (Auto) 0.500 Neut % (Auto) 71.4 H Lymph % (Auto) 18.8 L [place] % (Auto) 8.0 Eos % (Auto) 0.8 Baso % (Auto) 0.5 Absolute Neuts (auto) 6.3 Absolute Lymphs (auto) 1.67 Nucleated RBC % 0 PT 14.6 INR 1.1 APTT 29.8 Sodium 137 Potassium 4.0 Chloride 106 Carbon Dioxide 29.0 Anion Gap 2 L BUN 17 Creatinine 1.26 Estim Creat Clear Calc 55.37 Est GFR (MDRD) Af Amer 74 Est GFR (MDRD) Non-Af 61 BUN/Creatinine Ratio 13.5 Glucose 110 H Calcium 9.3 Troponin I High Sens 3 POC Glucose 108 H Radiography Diagnostic Testing: Clinical Impression(s) from Imaging Studies Brain CT 03/15/24 21:04 IMPRESSION: Age-related changes as above, without evidence of acute intracranial hemorrhage in this noncontrast head CT. Stroke protocol head CT results discussed with Dr. Darren Nava at 2122 hours eastern time 03/15/2024. N.B. : The above Results were Read Back by Osvaldo Reid MD to Darren Nava MD, and understanding confirmed on 03/15/2024 21:24:57 (ET). Electronically Signed: Osvaldo Reid MD at 21:26 EDT , ADDENDUM: 03/15/24 2133 IMPRESSION: Age-related changes as above, without evidence of acute intracranial hemorrhage in this noncontrast head CT. Stroke protocol head CT results discussed with Dr. Darren Nava at 2122 hours eastern time 03/15/2024. N.B. : The above Results were Read Back by Osvaldo Reid MD to Darren Nava MD, and understanding confirmed on 03/15/2024 21:24:57 (ET). Electronically Signed: Osvaldo Reid MD at 21:26 EDT , Head/Neck CTA 03/15/24 21:05 IMPRESSION: Negative CTA Head and Neck. Electronically Signed: Gene Bartlett MD at 21:50 EDT , ADDENDUM: 03/15/242200 IMPRESSION: Negative CTA Head and Neck. N.B. : The above Results were Read Back by Gene Bartlett MD to Darren Nava MD, and understanding confirmed on 03/15/2024 21:54:21 (ET). Electronically Signed: Gene Bartlett MD at 21:50 EDT , Chest X-Ray 03/15/24 21:33 IMPRESSION: Chest with no acute disease. Electronically Signed: Osvaldo Reid MD at 22:51 EDT , Rhythm Strip Rhythm Strip: Sinus Rhythm Rate: 85 Ectopy: None EKG Initial EKG: Attestation: I personally reviewed and interpreted this EKG as follows: Interpretation: Sinus Rhythm and No Acute Injury Pattern Comments: nml EKG Management Discussion w/another healthcare provider: Hospitalist, Hydroelectric Station Operator (Dr. Lanier, [facility] stroke neurology -- in agreement w/ above) and Radiologist Stroke Documentation Questions Stroke Team Activated: Yes (see MDM) IV Thrombolytic Administered: No (outside thrombolytic window) Critical Care Time Critical Care Time: Yes Critical care time (excluding procedures): 30-74 minutes (36 min), Including time spent:, Discussing w/Patient &/or Family/Mental Hygienist, Discussing w/Consultants, Arranging Admission or Transfer and Performing Direct Patient Care at Bedside Discharge Plan Triage Chief Complaint: Neuro S/Sx ED Provider: Darren Nava Dx/Rx/DC Orders Clinical Impression: Acute ischemic stroke Prescriptions: Continued multivitamin Tablet 1 tab PO DAILY meloxicam 7.5 mg tablet 7.5 mg PO DAILY PRN (Reason: Neck Pain) Qty: 90 2RF aspirin 81 mg tablet,delayed release (DR/EC) 81 mg PO .qod Patient Comments: takes maybe 3 times a week pantoprazole [Protonix] 40 mg tablet,delayed release (DR/EC) 40 mg PO DAILY Qty: 30 0RF sucralfate [Carafate] 1 gram tablet 1 g PO Q6H Qty: 60 0RF dicyclomine 20 mg tablet 20 mg PO .QID Qty: 20 0RF Discontinued metronidazole [Flagyl] 500 mg tablet 500 mg PO BID Qty: 14 0RF ciprofloxacin HCl 500 mg tablet 500 mg PO BID Qty: 14 0RF Primary Care Provider: [facility] Referrals: Antonio Michelle MD [Med Staff - Active Staff] - [facility] [Primary Care Provider] - As soon as possible Activity Restrictions/Additional Instructions: You had left-sided headache with left-sided numbness and weakness. Your symptoms are improving. The concern is that you may have had a stroke other possibilities could be a migraine. As we spoke, I recommended further stroke workup with additional studies including CAT scan. I cannot rule out that you d id or did not have a stroke. If you have worsening symptoms, such as increased weakness numbness, notify your physician or return to the emergency room. Please get into see your doctor at the [facility] as soon as you are able to. Print Language: Spanish Disposition Disposition: Against Medical Advice Discharge Date/Time: 03/15/24 23:36 Capacity Capacity Assessment Tool Patient lacks Decision Making Capacity: unable to understand, reason and deliberate health related choices: No Risk to self and or others?: Yes Risk of leaving the patient care unit and or hospital?: Yes
--- NOTE | 2024-03-15 21:05 | CT_ITS ---
We are attempting to reach an attending provider to discuss findings. An addendum with communication details will be sent when the communication is complete. INDICATION: Neuro deficit, acute, stroke suspected EXAMINATION: CTA CAROTIDS AND BRAIN - CTA Head and Neck Stroke W/ Contrast (and W/O if performed) TECHNIQUE: Routine CTA of the head and neck was performed with post processing of the angiographic images for volumetric reconstructions. In addition, images were obtained of the [place] criteria using the distal ICAs for comparison were used for evaluation of stenoses. 3D reconstructions were reviewed. A radiation dose optimization technique was used for this scan. IV Contrast dosage and agent: 100 cc [id number] COMPARISON: Noncontrast head CT same date FINDINGS: --NECK: AORTIC ARCH AND BRANCHES: Vessel origins patent. RIGHT CCA: No occlusion, significant stenosis or dissection. RIGHT ICA: No occlusion, significant stenosis or dissection. LEFT CCA: No occlusion, significant stenosis or dissection. LEFT ICA: No occlusion, significant stenosis or dissection. RIGHT VERTEBRAL ARTERY: No occlusion, significant stenosis or dissection. LEFT VERTEBRAL ARTERY: No occlusion, significant stenosis or dissection. NECK SOFT TISSUES: Unremarkable. LUNG APICES: Clear. BONES: Degenerative and postsurgical changes. --HEAD: --Anterior circulation: ICAs: No significant stenosis at the intracranial/visualized segments. ACAs: No significant stenosis at the visualized segments. ACOM: Present. MCAs: No significant stenosis at the visualized segments. --Posterior circulation: PCOMs: Not seen. president ergonomic consulting: No significant stenosis at the visualized segments. BASILAR ARTERY: No significant stenosis. VERTEBRAL ARTERIES: No significant stenosis at the intradural/visualized segments. No evidence of intracranial aneurysm or vascular malformation. CT/STROKE CTA Head AND Neck W/Con IMPRESSION: Negative CTA Head and Neck. Electronically Signed: Gene Bartlett MD at 21:50 EDT ,
--- NOTE | 2024-03-15 21:10 | NURSING ---
lkw 1400 today, per pt
[2024-03-15 21:18] LABS: Absolute Lymphocyte Count 1.67 X10^3/uL (0.83-4.51); Absolute Neutrophil Count 6.3 X10^3/uL (2.0-7.7); Basophil# 0.04 X10^3/uL; Basophil% 0.5 % (0-1); Eosinophil# 0.07 X10^3/uL; Eosinophils% 0.8 % (0-5); Hemoglobin 12.3 g/dL (13.0-16.5); Lymphocyte # 1.67 X10^3/ul (0.83-4.51); Lymphocyte % 18.8 % (19-41); Mean Corp Hgb Conc 33.2 g/dL (32-36); Mean Corpuscular Hgb 33.3 pg (27.0-32.0); Mean Corpuscular Volume 100.3 fL (80-94); Mean Platelet Vol. 10.4 fl (6.2-12.0); Monocyte# 0.71 X10^3/uL; NRBC Flagged by Analyzer 0 % (0-5); Neutrophil # 6.34 X10^3/uL (2.7-7.7); Neutrophil % 71.4 % (47-70); Platelet Count 167 K/mm3 (150-450); RBC Distribution Width CV 13.2 % (11.6-14.6); Red Blood Count 3.69 M/mm3 (4.6-6.2); White Blood Count 8.9 K/mm3 (4.4-11.0)
[2024-03-15 21:24] LABS: Bedside Glucose 108 mg/dL (74-106)
[2024-03-15 21:26] LABS: International Normalized Ratio 1.1; Prothrombin Time (Protime)PT. 14.6 SECONDS (11.7-14.9)
[2024-03-15 21:27] LABS: Partial Thromboplast Time 29.8 Seconds (24.1-36.2)
--- NOTE | 2024-03-15 21:33 | RAD_ITS ---
INDICATION: Neuro deficit, acute, stroke suspected EXAMINATION/TECHNIQUE: X-RAY - XR Chest 1 View COMPARISON: None. Findings: Single frontal view of the chest. LUNG PARENCHYMA: No acute focal airspace disease or mass lesion. PLEURA: No pleural effusion. No pneumothorax. HEART/GREAT VESSELS: Cardiomediastinal silhouette is unremarkable. BONES: Lower cervical spine fusion hardware, incompletely imaged, although no obvious hardware complication. RAD/Chest 1 View IMPRESSION: Chest with no acute disease. Electronically Signed: Osvaldo Reid MD at 22:51 EDT ,
[2024-03-15 21:37] LABS: Anion Gap 2 (5-15); BUN 17 mg/dL (7-18); BUN/Creat Ratio 13.5 RATIO (10-20); Calcium,Total 9.3 mg/dL (8.5-10.1); Chloride 106 mmol/L (98-107); Creatinine, Serum 1.26 mg/dL (0.70-1.30); EST Glomerular Filtration Rate 61 mL/min (>60); Est Glom Filt Rate - Afr Amer 74 mL/min (>60); Estimated Creatinine Clearance 55.37 ml/min; Glucose 110 mg/dL (74-106); Sodium Level 137 mmol/L (136-145); Troponin-I HS 3 pg/mL (3.0-78.0)
[2024-03-15] MEDS: Acetaminophen 500 MG Tablet 1000 MG PO (22:21)
--- NOTE | 2024-03-15 22:45 | ED.RN ---
attempted to update medication list, but records currently locked by dr chambers. he is currently in pt's room.
--- NOTE | 2024-03-15 22:52 | PCM.DC ---
Discharge Instructions Diet Discharge Diet: Low fat / Low cholesterol Activity Discharge Activity: Return to Normal Activity Follow Up Care Test Results: Test results from this visit will be discussed in further detail at your follow-up appointment, if applicable. Discharge Plan Triage Chief Complaint: Neuro S/Sx ED Provider: Darren Nava Dx/Rx/DC Orders Clinical Impression: Acute ischemic stroke Prescriptions: Continued multivitamin Tablet 1 tab PO DAILY meloxicam 7.5 mg tablet 7.5 mg PO DAILY PRN (Reason: Neck Pain) Qty: 90 2RF aspirin 81 mg tablet,delayed release (DR/EC) 81 mg PO .qod Patient Comments: takes maybe 3 times a week pantoprazole [Protonix] 40 mg tablet,delayed release (DR/EC) 40 mg PO DAILY Qty: 30 0RF sucralfate [Carafate] 1 gram tablet 1 g PO Q6H Qty: 60 0RF dicyclomine 20 mg tablet 20 mg PO .QID Qty: 20 0RF Discontinued metronidazole [Flagyl] 500 mg tablet 500 mg PO BID Qty: 14 0RF ciprofloxacin HCl 500 mg tablet 500 mg PO BID Qty: 14 0RF [facility] Referrals: Antonio Michelle MD [Med Staff - Active Staff] - [facility] [Primary Care Provider] - As soon as possible Activity Restrictions/Additional Instructions: You had left-sided headache with left-sided numbness and weakness. Your symptoms are improving. The concern is that you may have had a stroke other possibilities could be a migraine. As we spoke, I recommended further stroke workup with additional studies including CAT scan. I cannot rule out that you did or did not have a stroke. If you have worsening symptoms, such as increased weakness numbness, notify your physician or return to the emergency room. Please get into see your doctor at the [place] as soon as you are able to. Print Language: Bulgarian Disposition Disposition: Home, Self Care
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
--- NOTE | 2024-03-15 23:00 | ED.RN ---
pt refusing admission. [facility] dc'd.
--- NOTE | 2024-03-15 23:35 | ED.RN ---
AMA papers signed, copy given to pt, pt ambulates out of department without difficulty.
== END 2024-03-15 23:36 | disposition left against medical advice (07) ==
LOC: ED 22:29 → PCU 22:45 → ED 22:53
PROVIDERS: Emergency Provider Emergency Medicine; Visit Provider Emergency Medicine
DX: I63.9 Cerebral infarction, unspecified (principal); R53.1 Weakness; F17.200 Nicotine dependence, unspecified, uncomplicated; F12.90 Cannabis use, unspecified, uncomplicated
CPT/HCPCS: 70450; 70496; 70498; 71045; 80048; 82962; 84484; 85025; 85610; 85730; 93005; 99285; Q9967

== ENCOUNTER 2024-10-25 13:28 | Emergency (ER) | payer MEDICARE, MEDICAID, SELFPAY ==
[2024-10-25 13:28] VITALS: BP 154/85; PULSE 87; RESP 16; TEMP 36.6; O2SAT 98; BMI 24.9
[2024-10-25 15:40] LABS: Absolute Lymphocyte Count 1.56 X10^3/uL (0.83-4.51); Absolute Neutrophil Count 8.5 X10^3/uL (2.0-7.7); Basophil# 0.04 X10^3/uL; Basophil% 0.4 % (0-1); Eosinophil# 0.04 X10^3/uL; Eosinophils% 0.4 % (0-5); Hematocrit 39.3 % (40-54); Hemoglobin 13.3 g/dL (13.0-16.5); Lymphocyte # 1.56 X10^3/ul (0.83-4.51); Lymphocyte % 14.1 % (19-41); Mean Corp Hgb Conc 33.8 g/dL (32-36); Mean Corpuscular Hgb 34.1 pg (27.0-32.0); Mean Corpuscular Volume 100.8 fL (80-94); Mean Platelet Vol. 10.7 fl (6.2-12.0); Monocyte# 0.86 X10^3/uL; Monocyte% 7.8 % (0-10); NRBC Flagged by Analyzer 0 % (0-5); Neutrophil # 8.51 X10^3/uL (2.7-7.7); POSITIVE MORPHOLOGY YES; Platelet Count 187 K/mm3 (150-450); RBC Distribution Width SD 48.6 fl (35.1-43.9)
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
[2024-10-25 15:50] LABS: Anion Gap 5 (5-15); BUN 19 mg/dL (7-18); BUN/Creat Ratio 16.7 RATIO (10-20); Calcium,Total 9.5 mg/dL (8.5-10.1); Chloride 107 mmol/L (98-107); Creatinine, Serum 1.14 mg/dL (0.70-1.30); EST Glomerular Filtration Rate 69 mL/min (>60); Est Glom Filt Rate - Afr Amer 83 mL/min (>60); Glucose 101 mg/dL (74-106); Potassium 4.8 mmol/L (3.5-5.1); Sodium Level 140 mmol/L (136-145)
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
[2024-10-25 16:09] LABS: Platelet Estimate ADEQUATE (ADEQ)
[2024-10-25 16:14] LABS: Platelet Morphology LARG; Red Cell Morphology NORM C+C NORMAL (NORM C&C)
[2024-10-25 16:15] LABS: Differential Indicated SCAN CRITERIA MET
[2024-10-25 17:14] VITALS: BP 157/84; PULSE 79; RESP 20; TEMP 36.2; O2SAT 100
== END 2024-10-25 17:15 | disposition home or self-care (01) ==
PROVIDERS: Nurse Practitioner; Emergency Provider Emergency Medicine; Visit Provider Emergency Medicine
DX: S09.90XA Unspecified injury of head, initial encounter (principal); J44.9 Chronic obstructive pulmonary disease, unspecified; M54.2 Cervicalgia; F17.210 Nicotine dependence, cigarettes, uncomplicated; Y04.8XXA Assault by other bodily force, initial encounter
CPT/HCPCS: 70496; 70498; 80048; 85025; 99283; Q9967; A4216